=== PATIENT | male | born 1945 | race Caucasian/White ===

== ENCOUNTER 2017-01-04 13:40 | Emergency (ER) | payer MEDICARE, OTHER ==
[~2017-01-04] VITALS: Ht 170.2 cm; Wt 74.0 kg
[2017-01-04] MEDS ORDERED: SODIUM CHLORIDE 0.9% 1,000 ML IV ONE (13:42)
[2017-01-04] MEDS ORDERED: SODIUM CHLORIDE FLUSH 10ML SYR IVF ONE (14:00)
[2017-01-04 14:08] LABS: BLOOD UREA NITROGEN 24 mg/dL (7-18)
[2017-01-04] MEDS ORDERED: HYDROcodone/APAP 5/325 TABLET ONE (14:29)
[2017-01-04] MEDS ORDERED: MORPHINE SULFATE 4 MG/ML, 1ML ONE (14:29)
[2017-01-04] MEDS ORDERED: PLEASE ENTER ALLERGIES MC SCH ×2 (14:30)
[2017-01-04] MEDS ORDERED: MORPHINE SULFATE 4 MG/ML, 1ML IVPush ONE (14:30)
[2017-01-04] MEDS ORDERED: HYDROcodone/APAP 5/325 TABLET PO ONE (14:30)
[2017-01-04 14:59] VITALS: BP 148/67
== END 2017-01-04 16:15 | disposition home or self-care (01) ==
LOC: ED 15:48
DX: S52.592A Other fractures of lower end of left radius, initial encounter for closed fracture (principal); S00.511A Abrasion of lip, initial encounter; E11.22 Type 2 diabetes mellitus with diabetic chronic kidney disease; N18.9 Chronic kidney disease, unspecified; W01.0XXA Fall on same level from slipping, tripping and stumbling without subsequent striking against object, initial encounter; Y93.01 Activity, walking, marching and hiking; Y92.89 Other specified places as the place of occurrence of the external cause; Y99.8 Other external cause status
CPT/HCPCS: 29125; 36415; 70450; 72125; 73110; 80048; 82040; 85025; 85610; 96361; 96374; 99285; J7030